=== PATIENT | male | born 1950 | race Caucasian/White ===

== ENCOUNTER 2018-02-18 06:56 | Day surgery (SDC) | payer OTHER, BC, MEDICARE ==
[2018-02-18] MEDS ORDERED: LIDOCAINE HCL 1% MPF 30 SOL ONE (07:33)
[2018-02-18] MEDS ORDERED: PROPOFOL 500 MG/50 ML EMU IV ONE (07:33)
[2018-02-18 08:52] VITALS: TEMP 96.8
[2018-02-18 09:34] VITALS: PULSE 47; RESP 20; O2SAT 100
[2018-02-18 09:36] VITALS: BP 167/88
[2018-02-18 13:36] LABS: PATHOLOGY SPEC OR BIOPSY REFER MAYO/MKTO PATH
== END 2018-02-18 09:48 | disposition home or self-care (01) | DRG 392 ==
LOC: SURG 06:56
PROVIDERS: ATTEND Internal Medicine Gastroenterology
DX: K52.9 Noninfective gastroenteritis and colitis, unspecified (principal); K57.32 Diverticulitis of large intestine without perforation or abscess without bleeding; K64.8 Other hemorrhoids
CPT/HCPCS: 99001; J2001; J2704